=== PATIENT | female | born 1970 | race American Indian/Alaskan Native ===

== ENCOUNTER 2020-04-19 08:47 | Emergency (ER) | payer SELFPAY ==
[2020-04-19 09:12] VITALS: BP 122/75
[2020-04-19] MEDS ORDERED: HYDROcodone/ACETAMINOPHEN 5-325 MG TAB PO ONE (09:53)
--- NOTE | 2020-04-19 10:15 | XRay Report ---
. LEFT ANKLE 3 VIEWS INDICATION: left ankle injury. COMPARISON: None. IMPRESSION: No acute osseous or soft tissue abnormality. No significant DJD. Signer Name: Filiberto Montez Jr, MD Signed: 04/19/2020 10:10 AM Workstation Name: [id number]
--- NOTE | 2020-04-19 10:28 | Emergency Department Report ---
ED Lower Extremity HPI - General Chief Complaint: Extremity Injury, Lower Stated Complaint: LT ANKLE INJURY Time Seen by Provider: 04/19/20 09:49 Source: patient Mode of arrival: Wheelchair Limitations: Physical Limitation - History of Present Illness Initial Comments: Patient is a 49-year-old female presents emergency room with complaints of a left ankle injury that occurred yesterday. She states that she accidentally misstepped while going up the steps and fell and had a inversion injury of her ankle. She states that she has not been ambulatory since the incident secondary to pain. She states that she has been hopping around on the other leg. She denies ever injuring in the past. She denies any numbness or weakness. She denies any past medical history. No allergies to medications. She states that she had a hysterectomy. - Related Data Previous Rx's Medication Instructions Recorded Last Taken Type Naproxen [EC-Naproxen] 500 mg PO BID PRN #14 tablet. 04/19/20 Unknown Rx Allergies Allergy/AdvReac Type Severity Reaction Status Date / Time No Known Allergies Allergy Unverified 04/19/20 09:12 ED Review of Systems ROS: Stated complaint: LT ANKLE INJURY Other details as noted in HPI Comment: All other systems reviewed and negative ED Past Medical Hx - Past Medical History Previous Medical History?: No - Surgical History Past Surgical History?: No - Social History Smoking Status: Current Every Day Smoker Substance Use Type: Alcohol, Marijuana - Medications Home Medications: Home Medications Medication Instructions Recorded Confirmed Last Taken Type Naproxen [EC-Naproxen] 500 mg PO BID PRN #14 tablet. 04/19/20 Unknown Rx ED Physical Exam - General Limitations: Physical Limitation General appearance: alert, in no apparent distress - Head Head exam: Present: atraumatic, normocephalic - Eye Eye exam: Present: normal appearance - ENT ENT exam: Present: mucous membranes moist - Extremities Exam Extremities exam: Present: other (ttp and edema present to the left lateral foot, no ttp to the bilateral malleoli, FROM of the left ankle, foot, and toes, no obvious deformity, neurovasculalry intact) - Neurological Exam Neurological exam: Present: alert, oriented X3 - Psychiatric Psychiatric exam: Present: normal affect, normal mood - Skin Skin exam: Present: warm, dry, intact ED Course Vital Signs 10/12/20 09:10 Temperature 97.8 F Pulse Rate 84 Respiratory 18 Rate Blood Pressure 122/75 O2 Sat by Pulse 99 Oximetry ED Lower Extremity MDM - Radiology Data Radiology results: report reviewed LEFT ANKLE 3 VIEWS INDICATION: left ankle injury. COMPARISON: None. IMPRESSION: No acute osseous or soft tissue abnormality. No significant DJD. Signer Name: Filiberto Montez Jr, MD Signed: 04/19/2020 10:10 AM Workstation Name: [id number] Transcribed By: RICARDO Dictated By: FILIBERTO MONTEZ JR, MD Electronically Authenticated By: FILIBERTO MONTEZ JR, MD Signed Date/Time: 04/19/20 1010 DD/ 09 TD/TT: HISTORY:fall, left lateral foot pain COMPARISON: None. TECHNIQUE: AP lateral and obliques views were obtained FINDINGS: Bones: No fracture or dislocation. Joint spaces: Maintained. Soft tissues: No significant abnormality. Additional findings: None. IMPRESSION: 1. No significant abnormality. Signer Name: Tray Reich MD Signed: 04/19/2020 10:32 AM Workstation Name: [id number] Transcribed By: SILVIA Dictated By: Tray Reich MD Electronically Authenticated By: Tray Reich MD Signed Date/Time: 04/19/20 1032 DD/ 29 TD/TT: - Medical Decision Making Patient is a 49-year-old female presents emergency room with complaints of a left ankle injury that occurred yesterday. She states that she accidentally misstepped while going up the steps and fell and had a inversion injury of her ankle. She states that she has not been ambulatory since the incident secondary to pain. She states that she has been hopping around on the other leg. She denies ever injuring in the past. She denies any numbness or weakness. She denies any past medical history. No allergies to medications. She states that she had a hysterectomy. Vitals are normal. On exam: ttp and edema present to the left lateral foot, no ttp to the bilateral malleoli, FROM of the left ankle, foot, and toes, no obvious deformity, neurovasculalry intact. X-ray left ankle ordered prior to my examination and shows IMPRESSION: No acute osseous or soft tissue abnormality. No significant DJD. Based on my examination appears to be more in the foot and not in the ankle, x-ray left foot ordered to rule out fracture. X-ray left foot 1. No significant abnormality. Symptoms most likely consistent with left foot sprain. Patient placed in Dennis wrap by pearl peller and remained neurovascularly intact. Patient given crutches and crutch instructions by pearl peller. Patient given pain medication while in the emergency department as she did not drive and symptoms improved. Patient given prescription for naproxen. Advised patient Please take medication as prescribed as needed. May ice for 15 minutes at a time, rest, elevate the leg. Please do not wear Dennis bandage too tightly and do not wear at night while sleeping. Follow-up with orthopedic doctor. Return to emergency room for any new or worsening symptoms. - Differential Diagnosis Strain, sprain, fracture, dislocation, effusion, contusion, tendinitis Critical care attestation.: If time is entered above; I have spent that time in minutes in the direct care of this critically ill patient, excluding procedure time. ED Disposition Clinical Impression: Sprain of left foot Qualifiers: Encounter type: initial encounter Qualified Code(s): S93.602A - Unspecified sprain of left foot, initial encounter Disposition: - TO HOME OR SELFCARE Is pt being admited?: No Does the pt Need Aspirin: No Condition: Stable Instructions: Crutch Instructions (ED), Foot Sprain (ED), RICE Therapy (ED) Additional Instructions: Please take medication as prescribed as needed. May ice for 15 minutes at a time, rest, elevate the leg. Please do not wear Dennis bandage too tightly and do not wear at night while sleeping. Follow-up with orthopedic doctor. Return to emergency room for any new or worsening symptoms. Prescriptions: Naproxen [EC-Naproxen] 500 mg PO BID PRN #14 tablet.dr NAVAS Reason: pain Referrals: YING RUSSO MD [Staff Physician] - 2-3 Days [facility] [Provider Group] - 2-3 Days Time of Disposition: 10:39 Print Language: ROMANSH
--- NOTE | 2020-04-19 10:36 | XRay Report ---
HISTORY:fall, left lateral foot pain COMPARISON: None. TECHNIQUE: AP lateral and obliques views were obtained FINDINGS: Bones: No fracture or dislocation. Joint spaces: Maintained. Soft tissues: No significant abnormality. Additional findings: None. IMPRESSION: 1. No significant abnormality. Signer Name: Tray Reich MD Signed: 04/19/2020 10:32 AM Workstation Name: [id number]
== END 2020-04-19 10:52 | disposition home or self-care (01) ==
LOC: ED 08:47
DX: S93.602A Unspecified sprain of left foot, initial encounter (principal); F17.200 Nicotine dependence, unspecified, uncomplicated; F12.90 Cannabis use, unspecified, uncomplicated; Z79.899 Other long term (current) drug therapy; X58.XXXA Exposure to other specified factors, initial encounter; Y93.89 Activity, other specified; Y92.89 Other specified places as the place of occurrence of the external cause; Y99.8 Other external cause status